=== PATIENT | female | born 1965 | race Caucasian/White ===

== ENCOUNTER 2017-01-10 21:40 | Emergency (ER) | payer MEDICAID ==
[2017-01-10 22:11] LABS: BASOPHILS 0.1 % (0.0-2.0); EOSINOPHILS 1.9 % (0-7); HEMATOCRIT 39.2 % (36.0-48.0); HEMOGLOBIN 13.1 g/dL (12-16); IMMATURE GRANULOCYTES 0.3 % (0-5); LYMPHOCYTES 40.6 % (15-50); MCHC 33.4 g/dL (31.0-37.0); MCV 95.6 fL (80.0-100.0); MONOCYTES 8.3 % (2-11); NEUTROPHILS 48.8 % (40-80); PLATELET COUNT 226 10x3/uL (130-400); RDW 12.8 % (11.5-14.5); WBC 7.3 10x3/uL (4.8-10.8)
[2017-01-10 22:35] LABS: APPEARANCE CLEAR (CLEAR); BILIRUBIN NEGATIVE (NEGATIVE); COLOR YELLOW (YELLOW); GLUCOSE NEGATIVE (NEGATIVE); KETONE NEGATIVE (NEGATIVE); LEUKOCYTE ESTERASE NEGATIVE (NEGATIVE); NITRITE NEGATIVE (NEGATIVE); PROTEIN NEGATIVE (NEGATIVE); UROBILINOGEN NORMAL (NORMAL)
[2017-01-10 22:36] LABS: BACTERIA NONE SEEN /hpf (NONE SEEN); EPITHELIAL CELLS 0-5 /hpf (0-5); RED CELLS - URINE 0-5 /hpf (0-5); WHITE CELLS - URINE NSEEN /hpf (0-5)
[2017-01-10 22:41] LABS: AMYLASE - SERUM 56 U/L (25-115); LIPASE 138 U/L (73-393)
== END 2017-01-10 23:07 | disposition home or self-care (01) ==
LOC: D.ER 21:40
PROVIDERS: Emergency Medicine
DX: E50.7 Other ocular manifestations of vitamin A deficiency (principal); K21.9 Gastro-esophageal reflux disease without esophagitis; F50.2 Bulimia nervosa; K27.9 Peptic ulcer, site unspecified, unspecified as acute or chronic, without hemorrhage or perforation; F41.0 Panic disorder [episodic paroxysmal anxiety]; F17.200 Nicotine dependence, unspecified, uncomplicated

== ENCOUNTER 2017-08-15 06:11 | Emergency (ER) | payer MEDICAID | END 2017-08-15 11:56 | disposition home or self-care (01) | LOC: D.ER 06:11 | DX: R06.00 Dyspnea, unspecified (principal); J44.1 Chronic obstructive pulmonary disease with (acute) exacerbation ==

== ENCOUNTER 2019-04-26 20:10 | Emergency (ER) | payer MEDICAID ==
[~2019-04-26] VITALS: Ht 160 cm; Wt 56.8 kg
[2019-04-26 20:17] VITALS: BP 129/74; Ht 160 cm; Wt 56.8 kg
[2019-04-26] MEDS ORDERED: ATIVAN0.5 MG PO (20:19)
== END 2019-04-26 22:24 | disposition left against medical advice (07) ==
LOC: D.ER 20:10
DX: M54.2 Cervicalgia (principal); M54.9 Dorsalgia, unspecified; R07.81 Pleurodynia; Y04.2XXA Assault by strike against or bumped into by another person, initial encounter; Y93.89 Activity, other specified; Y92.89 Other specified places as the place of occurrence of the external cause

== ENCOUNTER 2019-05-03 09:11 | Emergency (ER) | payer MEDICAID ==
[~2019-05-03 09:11] MED LIST: ATIVAN0.5 MG PO
[2019-05-03 09:15] VITALS: BMI 22.1
[2019-05-03 09:33] LABS: HEMATOCRIT 36.2 % (36.0-48.0); HEMOGLOBIN 12.5 g/dL (12-16); MCH 31.4 pg (26.0-34.0); MCHC 34.5 g/dL (31.0-37.0); MEAN PLATELET VOLUME 9.3 fL (7.4-10.4); PLATELET COUNT 193 10x3/uL (130-400); RBC 3.98 10x6/uL (4.00-5.40); RDW 12.5 % (11.5-14.5); WBC 3.7 10x3/uL (4.8-10.8)
[2019-05-03 09:46] LABS: ALKALINE PHOSPHATASE 49 U/L (46-116); ALT (SGPT) 25 U/L (10-68); BILIRUBIN - TOTAL 0.49 mg/dL (0.2-1.3); CALC OSMOLALITY 281 mosm/kg (275-300); CARBON DIOXIDE 25.6 mmol/L (21.0-32.0); CHLORIDE - SERUM 107 mmol/L (98-107); CREATININE - SERUM 0.6 mg/dL (0.6-1.3); GLUCOSE 96 mg/dL (74-106); POTASSIUM - SERUM 3.9 mmol/L (3.5-5.1); PROTEIN - SERUM 6.9 g/dL (6.4-8.2); SODIUM 141 mmol/L (136-145); UREA NITROGEN 14 mg/dL (7-18); eGFR NON AFRICAN AMERICAN > 90 mL/min (90-120)
[2019-05-03 09:47] LABS: APTT 31.8 SECONDS (22.8-39.4); INR 1.01 (0.85-1.17); PROTIME 12.8 SECONDS (11.6-15.0)
[2019-05-03 09:58] LABS: CKMB 0.2 U/L (0.0-3.6); CREATINE KINASE 32 UL (21-215); MAGNESIUM - SERUM 2.1 mg/dL (1.8-2.4)
[2019-05-03 10:00] LABS: TROPONIN-I < 0.017 ng/mL (0.000-0.060)
--- NOTE | 2019-05-03 10:03 | NUR ---
PT ASSESSED A LOW RISK. DR. BRUNNER AND ATTENDING PHYSICIAN NOTIFIED. RESOURCES GIVEN AND REVIEWED WITH PT. PT VERBALIZED UNDERSTANDING.
[2019-05-03 10:40] LABS: EOSINOPHILS 1 % (0-7); LYMPHOCYTES 57 % (15-50); MONOCYTES 8 % (2-11); NEUTROPHILS 34 % (40-80); PLATELET ESTIMATE NORMAL
[2019-05-03 15:59] VITALS: BP 84/53
== END 2019-05-03 16:00 | disposition home or self-care (01) ==
LOC: D.ER 09:11
PROVIDERS: Emergency Medicine
DX: R07.89 Other chest pain (principal)

== ENCOUNTER 2019-08-16 05:55 | Emergency (ER) | payer MEDICAID ==
[~2019-08-16] VITALS: Ht 160 cm; Wt 55.9 kg
[2019-08-16 05:59] VITALS: Ht 160 cm; Wt 55.9 kg
[2019-08-16] MEDS ORDERED: FLUTICASONE PRO16 GM NASAL (06:49)
[2019-08-16] MEDS ORDERED: CLEOCIN HCL300 MG PO (06:49)
[2019-08-16 07:12] VITALS: BP 126/80
== END 2019-08-16 07:13 | disposition home or self-care (01) ==
LOC: D.ER 05:55
DX: J01.90 Acute sinusitis, unspecified (principal); F17.200 Nicotine dependence, unspecified, uncomplicated

== ENCOUNTER 2019-09-04 08:49 | Emergency (ER) | payer SELFPAY ==
[~2019-09-04] VITALS: Ht 160 cm; Wt 56.8 kg
[~2019-09-04 08:49] MED LIST changes: +CLEOCIN HCL300 MG PO; +FLUTICASONE PRO16 GM NASAL
[2019-09-04 08:52] VITALS: Ht 160 cm; Wt 56.8 kg
[2019-09-04 09:20] LABS: BASOPHILS 0.2 % (0-2); EOSINOPHILS 6.4 % (0-7); HEMATOCRIT 41.2 % (36.0-48.0); LYMPHOCYTES 43.2 % (15-50); MCH 31.8 pg (26.0-34.0); MCV 93.6 fL (80.0-100.0); MEAN PLATELET VOLUME 9.8 fL (7.4-10.4); MONOCYTES 7.4 % (2-11); NEUTROPHILS 42.8 % (40-80); PLATELET COUNT 195 10x3/uL (130-400); RDW 12.7 % (11.5-14.5); WBC 4.8 10x3/uL (4.8-10.8)
[2019-09-04 09:24] LABS: APTT 31.7 SECONDS (22.8-39.4); INR 0.94 (0.85-1.17)
[2019-09-04 09:25] LABS: D-DIMER-QUANTITATIVE 0.32 ug/mLFEU (0.20-0.54)
[2019-09-04 09:28] LABS: ALBUMIN 4.4 g/dL (3.4-5.0); ALKALINE PHOSPHATASE 64 U/L (46-116); ALT (SGPT) 23 U/L (10-68); BILIRUBIN - TOTAL 0.43 mg/dL (0.2-1.3); CALC OSMOLALITY 277 mosm/kg (275-300); CARBON DIOXIDE 26.3 mmol/L (21.0-32.0); CHLORIDE - SERUM 104 mmol/L (98-107); CREATININE - SERUM 0.7 mg/dL (0.6-1.3); GLUCOSE 88 mg/dL (74-106); POTASSIUM - SERUM 3.7 mmol/L (3.5-5.1); PROTEIN - SERUM 7.8 g/dL (6.4-8.2); SODIUM 139 mmol/L (136-145); UREA NITROGEN 14 mg/dL (7-18); eGFR NON AFRICAN AMERICAN > 90 mL/min (90-120)
[2019-09-04 09:40] LABS: CKMB 0.4 U/L (0.0-3.6); CREATINE KINASE 37 UL (21-215); PRO BNP 141 pg/mL (0-125); TROPONIN-I < 0.017 ng/mL (0.000-0.060)
[2019-09-04 10:32] VITALS: BP 111/60
== END 2019-09-04 13:09 | disposition home or self-care (01) ==
LOC: D.ER 08:49
PROVIDERS: Family Medicine
DX: F41.0 Panic disorder [episodic paroxysmal anxiety] (principal)

== ENCOUNTER 2019-10-28 08:35 | Emergency (ER) | payer SELFPAY ==
[~2019-10-28] VITALS: Ht 160 cm; Wt 55.9 kg
[2019-10-28 08:41] VITALS: Ht 160 cm; Wt 55.9 kg
[2019-10-28] MEDS ORDERED: CLEOCIN HCL300 MG PO (09:05)
[2019-10-28 09:09] VITALS: BP 108/68
== END 2019-10-28 09:11 | disposition home or self-care (01) ==
LOC: D.ER 08:35
DX: J01.90 Acute sinusitis, unspecified (principal); Z72.0 Tobacco use

== ENCOUNTER 2019-11-18 15:10 | Emergency (ER) | payer SELFPAY ==
[~2019-11-18] VITALS: Ht 160 cm; Wt 57.7 kg
[2019-11-18 15:22] VITALS: Ht 160 cm; Wt 57.7 kg
[2019-11-18 15:48] LABS: APPEARANCE CLEAR (CLEAR); BILIRUBIN NEGATIVE (NEGATIVE); COLOR STRAW (YELLOW); GLUCOSE NEGATIVE (NEGATIVE); KETONE NEGATIVE (NEGATIVE); NITRITE NEGATIVE (NEGATIVE); PROTEIN NEGATIVE (NEGATIVE); SPECIFIC GRAVITY 1.005 (1.005-1.020); UROBILINOGEN NORMAL (NORMAL)
[2019-11-18 16:17] LABS: HEMATOCRIT 38.1 % (36.0-48.0); HEMOGLOBIN 12.9 g/dL (12-16); MCH 31.6 pg (26.0-34.0); MCHC 33.9 g/dL (31.0-37.0); MCV 93.4 fL (80.0-100.0); PLATELET COUNT 226 10x3/uL (130-400); RBC 4.08 10x6/uL (4.00-5.40); RDW 12.5 % (11.5-14.5); WBC 5.2 10x3/uL (4.8-10.8)
[2019-11-18 16:25] LABS: CALC OSMOLALITY 280 mosm/kg (275-300); CARBON DIOXIDE 29.3 mmol/L (21.0-32.0); CHLORIDE - SERUM 105 mmol/L (98-107); CREATININE - SERUM 0.7 mg/dL (0.6-1.3); GLUCOSE 91 mg/dL (74-106); POTASSIUM - SERUM 4.3 mmol/L (3.5-5.1); SODIUM 141 mmol/L (136-145); UREA NITROGEN 13 mg/dL (7-18); eGFR NON AFRICAN AMERICAN > 90 mL/min (90-120)
[2019-11-18 16:31] LABS: ALBUMIN 4.2 g/dL (3.4-5.0); ALKALINE PHOSPHATASE 73 U/L (46-116); ALT (SGPT) 55 U/L (10-68); BILIRUBIN - TOTAL 0.25 mg/dL (0.2-1.3); PROTEIN - SERUM 7.2 g/dL (6.4-8.2)
[2019-11-18 16:37] LABS: EOSINOPHILS 2 % (0-7); LYMPHOCYTES 51 % (15-50); MONOCYTES 9 % (2-11); NEUTROPHILS 38 % (40-80); PLATELET ESTIMATE NORMAL
[2019-11-18 18:53] VITALS: BP 110/70
== END 2019-11-18 18:53 | disposition home or self-care (01) ==
LOC: D.ER 15:10
PROVIDERS: Family Medicine
DX: G43.909 Migraine, unspecified, not intractable, without status migrainosus (principal); M79.7 Fibromyalgia

== ENCOUNTER 2019-11-26 20:57 | Emergency (ER) | payer MEDICAID ==
[~2019-11-26] VITALS: Ht 160 cm; Wt 59.1 kg
[2019-11-26 21:23] VITALS: BP 119/84; Ht 160 cm; Wt 59.1 kg
[2019-11-26 21:57] LABS: APPEARANCE CLEAR (CLEAR); BILIRUBIN NEGATIVE (NEGATIVE); COLOR YELLOW (YELLOW); GLUCOSE NEGATIVE (NEGATIVE); KETONE NEGATIVE (NEGATIVE); NITRITE NEGATIVE (NEGATIVE); PROTEIN NEGATIVE (NEGATIVE); UROBILINOGEN NORMAL (NORMAL)
[2019-11-26 22:21] LABS: CALC OSMOLALITY 281 mosm/kg (275-300); CALCIUM 8.9 mg/dL (8.5-10.1); CARBON DIOXIDE 27.7 mmol/L (21.0-32.0); CHLORIDE - SERUM 105 mmol/L (98-107); CREATININE - SERUM 0.7 mg/dL (0.6-1.3); GLUCOSE 99 mg/dL (74-106); POTASSIUM - SERUM 3.8 mmol/L (3.5-5.1); SODIUM 142 mmol/L (136-145); UREA NITROGEN 10 mg/dL (7-18); eGFR NON AFRICAN AMERICAN > 90 mL/min (90-120)
[2019-11-26 22:25] LABS: HEMOGLOBIN 13.4 g/dL (12-16); MCH 31.5 pg (26.0-34.0); MCHC 33.5 g/dL (31.0-37.0); MCV 94.1 fL (80.0-100.0); MEAN PLATELET VOLUME 9.3 fL (7.4-10.4); PLATELET COUNT 248 10x3/uL (130-400); RBC 4.25 10x6/uL (4.00-5.40); RDW 12.6 % (11.5-14.5); WBC 5.4 10x3/uL (4.8-10.8)
[2019-11-26 22:28] LABS: ALBUMIN 4.3 g/dL (3.4-5.0); ALKALINE PHOSPHATASE 65 U/L (46-116); ALT (SGPT) 27 U/L (10-68); BILIRUBIN - TOTAL 0.18 mg/dL (0.2-1.3); PROTEIN - SERUM 7.5 g/dL (6.4-8.2)
[2019-11-26 23:01] LABS: EOSINOPHILS 4 % (0-7); LYMPHOCYTES 49 % (15-50); MONOCYTES 4 % (2-11); NEUTROPHILS 43 % (40-80); PLATELET ESTIMATE NORMAL
== END 2019-11-26 22:38 | disposition left against medical advice (07) ==
LOC: D.ER 20:57
PROVIDERS: Family Medicine
DX: R05 Cough (principal)

== ENCOUNTER 2020-01-25 08:15 | Emergency (ER) | payer MEDICAID ==
[~2020-01-25] VITALS: Ht 160 cm; Wt 59.1 kg
[~2020-01-25 08:15] MED LIST changes: +BUSPAR5 MG PO
[2020-01-25 08:19] VITALS: Ht 160 cm; Wt 59.1 kg
[2020-01-25] MEDS ORDERED: DOXYCYCLINE HY100 M2 PO (08:34)
[2020-01-25 08:49] LABS: BASOPHILS 0.2 % (0-2); EOSINOPHILS 1.4 % (0-7); HEMATOCRIT 38.9 % (36.0-48.0); HEMOGLOBIN 13.1 g/dL (12-16); IMMATURE GRANULOCYTES 0.6 % (0-5); LYMPHOCYTES 48.5 % (15-50); MCH 31.2 pg (26.0-34.0); MCHC 33.7 g/dL (31.0-37.0); MCV 92.6 fL (80.0-100.0); MEAN PLATELET VOLUME 9.2 fL (7.4-10.4); MONOCYTES 7.6 % (2-11); NEUTROPHILS 41.7 % (40-80); PLATELET COUNT 251 10x3/uL (130-400); RDW 12.4 % (11.5-14.5)
[2020-01-25 09:37] LABS: BILIRUBIN NEGATIVE (NEGATIVE); GLUCOSE NEGATIVE (NEGATIVE); KETONE NEGATIVE (NEGATIVE); NITRITE NEGATIVE (NEGATIVE); SPECIFIC GRAVITY 1.005 (1.005-1.020); UROBILINOGEN NORMAL (NORMAL)
[2020-01-25 09:38] LABS: BACTERIA FEW /hpf (NEGATIVE); EPITHELIAL CELLS 0-5 /hpf (0-5); RED CELLS - URINE RARE /hpf (0-5); WHITE CELLS - URINE NSEEN /hpf (NEGATIVE)
[2020-01-25 09:53] LABS: CALC OSMOLALITY 285 mosm/kg (275-300); CARBON DIOXIDE 27.3 mmol/L (21.0-32.0); CHLORIDE - SERUM 106 mmol/L (98-107); CREATININE - SERUM 0.7 mg/dL (0.6-1.3); GLUCOSE 94 mg/dL (74-106); POTASSIUM - SERUM 3.9 mmol/L (3.5-5.1); SODIUM 143 mmol/L (136-145); UREA NITROGEN 14 mg/dL (7-18); eGFR NON AFRICAN AMERICAN > 90 mL/min (90-120)
[2020-01-25 09:54] VITALS: BP 113/62
[2020-01-25 09:59] LABS: ALBUMIN 3.9 g/dL (3.4-5.0); ALKALINE PHOSPHATASE 67 U/L (30-120); ALT (SGPT) 25 U/L (10-68); PROTEIN - SERUM 7.1 g/dL (6.4-8.2)
== END 2020-01-25 09:54 | disposition home or self-care (01) ==
LOC: D.ER 08:15
PROVIDERS: Emergency Medicine
DX: T48.295A Adverse effect of other drugs acting on muscles, initial encounter (principal); E04.9 Nontoxic goiter, unspecified

== ENCOUNTER 2020-06-03 22:08 | Emergency (ER) | payer MEDICAID ==
[~2020-06-03] VITALS: Ht 160 cm; Wt 63.5 kg
[~2020-06-03 22:08] MED LIST changes: +DOXYCYCLINE HY100 M2 PO
[2020-06-03 22:18] VITALS: Ht 160 cm; Wt 63.5 kg
[2020-06-03 23:49] LABS: HEMOGLOBIN 12.9 g/dL (12-16); LYMPHOCYTES 56.8 % (15-50); MCH 31.5 pg (26.0-34.0); MCHC 33.9 g/dL (31.0-37.0); MCV 92.7 fL (80.0-100.0); MEAN PLATELET VOLUME 9.1 fL (7.4-10.4); NEUTROPHILS 35.6 % (40-80); PLATELET COUNT 250 10x3/uL (130-400); RDW 12.6 % (11.5-14.5); WBC 5.7 10x3/uL (4.8-10.8)
[2020-06-04 00:03] LABS: CALC OSMOLALITY 282 mosm/kg (275-300); CARBON DIOXIDE 27.9 mmol/L (21.0-32.0); CHLORIDE - SERUM 107 mmol/L (98-107); CREATININE - SERUM 0.7 mg/dL (0.6-1.3); GLUCOSE 77 mg/dL (74-106); POTASSIUM - SERUM 3.6 mmol/L (3.5-5.1); SODIUM 142 mmol/L (136-145); UREA NITROGEN 14 mg/dL (7-18); eGFR NON AFRICAN AMERICAN > 90 mL/min (90-120)
[2020-06-04 00:09] LABS: HCG URINE NEGATIVE (NEGATIVE)
[2020-06-04 00:09] LABS: ALBUMIN 4.1 g/dL (3.4-5.0); ALKALINE PHOSPHATASE 74 U/L (30-120); ALT (SGPT) 22 U/L (10-68); BILIRUBIN - TOTAL 0.23 mg/dL (0.2-1.3); PROTEIN - SERUM 7.2 g/dL (6.4-8.2)
[2020-06-04 00:27] LABS: BILIRUBIN NEGATIVE (NEGATIVE); GLUCOSE NEGATIVE (NEGATIVE); KETONE NEGATIVE (NEGATIVE); NITRITE NEGATIVE (NEGATIVE); UROBILINOGEN NORMAL (NORMAL)
[2020-06-04 00:28] LABS: BACTERIA MODERATE /hpf (NEGATIVE); EPITHELIAL CELLS 0-5 /hpf (0-5); RED CELLS - URINE 0-5 /hpf (0-5); WHITE CELLS - URINE 0-5 /hpf (NEGATIVE)
[2020-06-04] MEDS ORDERED: MACROBID100 MG PO (00:39)
[2020-06-04 00:58] VITALS: BP 113/57
== END 2020-06-04 01:02 | disposition home or self-care (01) ==
LOC: D.ER 22:08
PROVIDERS: Family Medicine
DX: K59.00 Constipation, unspecified (principal); F50.2 Bulimia nervosa; N39.0 Urinary tract infection, site not specified

== ENCOUNTER 2020-06-27 10:31 | Emergency (ER) | payer MEDICAID ==
[~2020-06-27] VITALS: Ht 160 cm; Wt 61.4 kg
[~2020-06-27 10:31] MED LIST changes: +MACROBID100 MG PO
[2020-06-27 10:36] VITALS: Ht 160 cm; Wt 61.4 kg
[2020-06-27 11:39] LABS: BASOPHILS 0 % (0-2); EOSINOPHILS 1.6 % (0-7); HEMATOCRIT 38.1 % (36.0-48.0); IMMATURE GRANULOCYTES 0.2 % (0-5); LYMPHOCYTES 31.9 % (15-50); MCH 31.6 pg (26.0-34.0); MCHC 34.1 g/dL (31.0-37.0); MCV 92.7 fL (80.0-100.0); MEAN PLATELET VOLUME 9.4 fL (7.4-10.4); MONOCYTES 5.8 % (2-11); NEUTROPHILS 60.5 % (40-80); PLATELET COUNT 210 10x3/uL (130-400); RBC 4.11 10x6/uL (4.00-5.40); RDW 12.5 % (11.5-14.5); WBC 5.6 10x3/uL (4.8-10.8)
[2020-06-27 11:46] LABS: CALC OSMOLALITY 282 mosm/kg (275-300); CALCIUM 9.2 mg/dL (8.5-10.1); CARBON DIOXIDE 27.6 mmol/L (21.0-32.0); CHLORIDE - SERUM 108 mmol/L (98-107); CREATININE - SERUM 0.8 mg/dL (0.6-1.3); GLUCOSE 91 mg/dL (74-106); POTASSIUM - SERUM 3.9 mmol/L (3.5-5.1); SODIUM 142 mmol/L (136-145); UREA NITROGEN 12 mg/dL (7-18); eGFR NON AFRICAN AMERICAN 79 mL/min (90-120)
[2020-06-27 12:05] LABS: ALBUMIN 4.1 g/dL (3.4-5.0); ALKALINE PHOSPHATASE 64 U/L (30-120); ALT (SGPT) 21 U/L (10-68); BILIRUBIN - TOTAL 0.43 mg/dL (0.2-1.3); C-REACTIVE PROTEIN 0.6 mg/dL (0.0-0.9); FERRITIN 28 ng/mL (3-244); PROTEIN - SERUM 7.2 g/dL (6.4-8.2)
[2020-06-27] MEDS ORDERED: FLUTICASONE PRO16 GM NASAL (13:14)
[2020-06-27] MEDS ORDERED: CLEOCIN HCL300 MG PO (13:14)
[2020-06-27 13:27] VITALS: BP 122/78
== END 2020-06-27 13:27 | disposition home or self-care (01) ==
LOC: D.ER 10:31
PROVIDERS: Family Medicine
DX: J01.90 Acute sinusitis, unspecified (principal); R05 Cough; Z72.0 Tobacco use

== ENCOUNTER 2020-07-20 11:44 | Observation (INO) | payer MEDICAID ==
[~2020-07-20] VITALS: Ht 160 cm; Wt 63.6 kg
[2020-07-20 13:11] LABS: HEMOGLOBIN 12.3 g/dL (12-16); MCH 31.3 pg (26.0-34.0); MCHC 33.2 g/dL (31.0-37.0); MCV 94.1 fL (80.0-100.0); MEAN PLATELET VOLUME 9.4 fL (7.4-10.4); PLATELET COUNT 200 10x3/uL (130-400); RBC 3.93 10x6/uL (4.00-5.40); RDW 12.4 % (11.5-14.5); WBC 4.4 10x3/uL (4.8-10.8)
[2020-07-20 13:13] LABS: CALC OSMOLALITY 284 mosm/kg (275-300); CALCIUM 8.8 mg/dL (8.5-10.1); CARBON DIOXIDE 30.2 mmol/L (21.0-32.0); CHLORIDE - SERUM 107 mmol/L (98-107); CREATININE - SERUM 0.8 mg/dL (0.6-1.3); GLUCOSE 97 mg/dL (74-106); POTASSIUM - SERUM 3.9 mmol/L (3.5-5.1); SODIUM 143 mmol/L (136-145); UREA NITROGEN 13 mg/dL (7-18); eGFR NON AFRICAN AMERICAN 79 mL/min (90-120)
[2020-07-20 13:39] LABS: ALKALINE PHOSPHATASE 64 U/L (30-120); ALT (SGPT) 22 U/L (10-68); BILIRUBIN - TOTAL 0.27 mg/dL (0.2-1.3); CKMB 0.5 U/L (0.0-3.6); CREATINE KINASE 41 UL (21-215); MAGNESIUM - SERUM 1.9 mg/dL (1.8-2.4); PRO BNP 99 pg/mL (0-125)
[2020-07-20 13:43] LABS: TROPONIN-I < 0.017 ng/mL (0.000-0.060)
[2020-07-20 14:47] LABS: LYMPHOCYTES 43 % (15-50); MONOCYTES 3 % (2-11); NEUTROPHILS 54 % (40-80); PLATELET ESTIMATE NORMAL
--- NOTE | 2020-07-20 22:00 | NUR ---
ASSESSMENT AND EKG PERFORMED. EKD SCANNED AND IN CHART PER ORDER. SPOKE WITH PATIENT ABOUT NPO STATUS AND POSSIBLE HEART CATH TOMORROW AFTER CARDIOLOGY CONSULT. PATIENT VERBALIZES UNDERSTANDING. DENIES FURTHER NEEDS AT THIS TIME. CALL LIGHT REMAINS CLOSE. CPOC.
[2020-07-20 22:14] VITALS: BP 124/41; Ht 160 cm; Wt 63.6 kg
[2020-07-20 22:48] LABS: CKMB 0.2 U/L (0.0-3.6); CREATINE KINASE 41 UL (21-215)
[2020-07-20 22:49] LABS: TROPONIN-I < 0.017 ng/mL (0.000-0.060)
[2020-07-21 00:16] VITALS: BP 108/49
[2020-07-21 04:30] VITALS: BP 116/61
[2020-07-21 06:47] LABS: BASOPHILS 0.2 % (0-2); HEMATOCRIT 34.6 % (36.0-48.0); HEMOGLOBIN 11.3 g/dL (12-16); IMMATURE GRANULOCYTES 0.5 % (0-5); MCH 30.7 pg (26.0-34.0); MCHC 32.7 g/dL (31.0-37.0); MEAN PLATELET VOLUME 9.6 fL (7.4-10.4); MONOCYTES 6.2 % (2-11); NEUTROPHILS 32.1 % (40-80); PLATELET COUNT 188 10x3/uL (130-400); RBC 3.68 10x6/uL (4.00-5.40); RDW 12.4 % (11.5-14.5)
[2020-07-21 08:54] VITALS: BP 91/37
[2020-07-21 09:02] LABS: ALBUMIN 3.2 g/dL (3.4-5.0); ALKALINE PHOSPHATASE 49 U/L (30-120); ALT (SGPT) 20 U/L (10-68); BILIRUBIN - TOTAL 0.14 mg/dL (0.2-1.3); CALC OSMOLALITY 284 mosm/kg (275-300); CALCIUM 8.2 mg/dL (8.5-10.1); CARBON DIOXIDE 23.4 mmol/L (21.0-32.0); CHLORIDE - SERUM 112 mmol/L (98-107); CKMB 0.4 U/L (0.0-3.6); CREATINE KINASE 35 UL (21-215); CREATININE - SERUM 0.7 mg/dL (0.6-1.3); GLUCOSE 102 mg/dL (74-106); PROTEIN - SERUM 5.8 g/dL (6.4-8.2); SODIUM 143 mmol/L (136-145); UREA NITROGEN 13 mg/dL (7-18); eGFR NON AFRICAN AMERICAN > 90 mL/min (90-120)
[2020-07-21 09:03] LABS: TROPONIN-I < 0.017 ng/mL (0.000-0.060)
[2020-07-21 11:30] LABS: CKMB 0.4 U/L (0.0-3.6); CREATINE KINASE 39 UL (21-215)
[2020-07-21 11:39] LABS: TROPONIN-I 0.017 ng/mL (0.000-0.060)
[2020-07-21 13:05] VITALS: BP 115/63
--- NOTE | 2020-07-21 13:25 | NUR ---
PT WAS VERY AGIATED WHEN NURSE ANSWER CALLED LIGHT D/T HER WANTING TO EAT BUT SHE STILL REMAINS NPO UNTIL AFTER HER STRESS TEST. THIS NURSE HAS EXPLAINED TO PT IN DETAIL ABOUT WHAT IS GOING ON AND PT AT THAT TIME VOICES UNDERSTANDING. PT THEN GET BACK ON LIGHT AND STATED " I DONT KNOW WHATS GOING ON. NO ONE HAS TOLD ME ANYTHING AND I DONT UNDERSTANDING WHY I CANT EAT OR HAVE COFFEE." THIS NURSE INFORMED PT THAT THE CLINICAL STAFF ANESTHESIOLOGIST HAS BEEN PAGE TO ENSURE THAT TEST WILL BE TAKING PLACE ON TODAY. AND WAS INFORMED THAT IT WILL. AND THAT AFTER THE TEST PT MAY HAVE A DIET. PT WAS INFORMED AGAIN OF TIME OF STRESS TEST AND SHE WAS VERY SORRY FOR HER BEHAVIOR. C/L IN REACH AT BEDSIDE.
[2020-07-21 17:37] VITALS: BP 111/52
--- NOTE | 2020-07-21 21:12 | NUR ---
REMOVED PIV WITH TIP INTACT. PATIENT SIGNED D/C PAPERS, ALL QUESTIONS ANSWERED. TOOK PATIENT OUT THROUGH ER DOORS WHERE WAS WAITING.
== END 2020-07-21 21:12 | disposition home or self-care (01) ==
LOC: D.ER 11:44 → D.MS 17:30 → OBSVTIME 17:30 → D.MS 17:30
PROVIDERS: Family Medicine; ADMIT Family Medicine Adult Medicine; ATTEND Family Medicine Adult Medicine
DX: F41.9 Anxiety disorder, unspecified (principal); R07.9 Chest pain, unspecified; R06.02 Shortness of breath; K21.9 Gastro-esophageal reflux disease without esophagitis

== ENCOUNTER 2020-08-04 14:17 | Emergency (ER) | payer MEDICAID ==
[~2020-08-04] VITALS: Ht 160 cm; Wt 63.6 kg
[2020-08-04 14:22] VITALS: Ht 160 cm; Wt 63.6 kg
[2020-08-04 14:56] LABS: HEMATOCRIT 37.3 % (36.0-48.0); HEMOGLOBIN 12.4 g/dL (12-16); MCH 31.1 pg (26.0-34.0); MCHC 33.2 g/dL (31.0-37.0); MCV 93.5 fL (80.0-100.0); MEAN PLATELET VOLUME 9.4 fL (7.4-10.4); PLATELET COUNT 210 10x3/uL (130-400); RBC 3.99 10x6/uL (4.00-5.40); RDW 12.5 % (11.5-14.5); WBC 4.6 10x3/uL (4.8-10.8)
[2020-08-04 15:07] LABS: CALC OSMOLALITY 284 mosm/kg (275-300); CALCIUM 8.9 mg/dL (8.5-10.1); CARBON DIOXIDE 28.7 mmol/L (21.0-32.0); CHLORIDE - SERUM 104 mmol/L (98-107); CREATININE - SERUM 0.7 mg/dL (0.6-1.3); GLUCOSE 116 mg/dL (74-106); POTASSIUM - SERUM 3.6 mmol/L (3.5-5.1); SODIUM 142 mmol/L (136-145); UREA NITROGEN 14 mg/dL (7-18); eGFR NON AFRICAN AMERICAN > 90 mL/min (90-120)
[2020-08-04 15:13] LABS: ALBUMIN 4.1 g/dL (3.4-5.0); ALKALINE PHOSPHATASE 74 U/L (30-120); ALT (SGPT) 32 U/L (10-68); BILIRUBIN - TOTAL 0.45 mg/dL (0.2-1.3); PROTEIN - SERUM 7.2 g/dL (6.4-8.2)
[2020-08-04] MEDS ORDERED: CYCLOBENZAPRINE10 MG PO (16:10)
[2020-08-04] MEDS ORDERED: ACETAMINOPHEN500 M1 PO (16:10)
[2020-08-04] MEDS ORDERED: IBUPROFEN800 MG PO (16:10)
[2020-08-04 16:17] VITALS: BP 140/74
[2020-08-04 16:57] LABS: EOSINOPHILS 5 % (0-7); LYMPHOCYTES 52 % (15-50); NEUTROPHILS 43 % (40-80); PLATELET ESTIMATE NORMAL
== END 2020-08-04 16:17 | disposition home or self-care (01) ==
LOC: D.ER 14:17
PROVIDERS: Family Medicine
DX: M70.52 Other bursitis of knee, left knee (principal); M79.18 Myalgia, other site; K21.9 Gastro-esophageal reflux disease without esophagitis; M25.562 Pain in left knee

== ENCOUNTER 2021-04-02 11:45 | Emergency (ER) | payer BC ==
[~2021-04-02] VITALS: Ht 160 cm; Wt 70.5 kg
[~2021-04-02 11:45] MED LIST changes: +ACETAMINOPHEN500 M1 PO; +CYCLOBENZAPRINE10 MG PO; +IBUPROFEN800 MG PO; +PEPCID40 MG PO
[2021-04-02 11:49] VITALS: Ht 160 cm; Wt 70.5 kg
[2021-04-02 12:24] LABS: BASOPHILS 0.1 % (0-2); EOSINOPHILS 0.2 % (0-7); HEMATOCRIT 37.7 % (36.0-48.0); HEMOGLOBIN 12.2 g/dL (12-16); IMMATURE GRANULOCYTES 0.3 % (0-5); LYMPHOCYTE ABS# 3.99 10x3/uL (1.18-3.74); LYMPHOCYTES 44.4 % (15-50); MCH 30.7 pg (26.0-34.0); MCHC 32.4 g/dL (31.0-37.0); MEAN PLATELET VOLUME 9.9 fL (7.4-10.4); MONOCYTES 6.2 % (2-11); NEUTROPHIL ABS# 4.38 10x3/uL (1.56-6.13); NEUTROPHILS 48.8 % (40-80); PLATELET COUNT 236 10x3/uL (130-400); RBC 3.97 10x6/uL (4.00-5.40); RDW 13.4 % (11.5-14.5)
[2021-04-02 12:31] LABS: CALC OSMOLALITY 284 mosm/kg (275-300); CALCIUM 8.5 mg/dL (8.5-10.1); CHLORIDE - SERUM 106 mmol/L (98-107); CREATININE - SERUM 0.8 mg/dL (0.6-1.3); GLUCOSE 104 mg/dL (74-106); POTASSIUM - SERUM 3.1 mmol/L (3.5-5.1); SODIUM 142 mmol/L (136-145); UREA NITROGEN 17 mg/dL (7-18); eGFR NON AFRICAN AMERICAN 79 mL/min (90-120)
[2021-04-02 12:32] LABS: APTT 27.4 SECONDS (22.8-39.4); INR 1.01 (0.85-1.17); PROTIME 12.3 SECONDS (11.6-15.0)
[2021-04-02 12:48] LABS: ALBUMIN 3.8 g/dL (3.4-5.0); ALKALINE PHOSPHATASE 88 U/L (30-120); ALT (SGPT) 79 U/L (10-68); BILIRUBIN - TOTAL 0.21 mg/dL (0.2-1.3); CKMB 0.4 U/L (0.0-3.6); CREATINE KINASE 33 UL (21-215); MAGNESIUM - SERUM 2.1 mg/dL (1.8-2.4); PROTEIN - SERUM 7.1 g/dL (6.4-8.2); THYROID STIMULATING HORMONE 4.18 uIU/mL (0.36-3.74); TROPONIN-I < 0.017 ng/mL (0.000-0.060)
[2021-04-02 14:38] LABS: BILIRUBIN NEGATIVE (NEGATIVE); KETONE NEGATIVE (NEGATIVE); NITRITE NEGATIVE (NEGATIVE); UROBILINOGEN NORMAL mg/dL (< 2)
[2021-04-02 16:30] VITALS: BP 118/60
== END 2021-04-02 16:33 | disposition home or self-care (01) ==
LOC: D.ER 11:45
PROVIDERS: Emergency Medicine
DX: R53.81 Other malaise (principal); F41.9 Anxiety disorder, unspecified; E34.9 Endocrine disorder, unspecified; E87.6 Hypokalemia

== ENCOUNTER 2021-04-11 08:52 | Emergency (ER) | payer BC ==
[~2021-04-11] VITALS: Ht 160 cm; Wt 69.9 kg
[2021-04-11 08:58] VITALS: Ht 160 cm; Wt 69.9 kg
[2021-04-11 09:34] LABS: BASOPHILS 0 % (0-2); EOSINOPHILS 1.9 % (0-7); HEMATOCRIT 36.7 % (36.0-48.0); HEMOGLOBIN 12.3 g/dL (12-16); IMMATURE GRANULOCYTES 0.3 % (0-5); LYMPHOCYTE ABS# 1.73 10x3/uL (1.18-3.74); LYMPHOCYTES 47.3 % (15-50); MCHC 33.5 g/dL (31.0-37.0); MCV 92.4 fL (80.0-100.0); MEAN PLATELET VOLUME 9.3 fL (7.4-10.4); MONOCYTES 9.6 % (2-11); NEUTROPHILS 40.9 % (40-80); PLATELET COUNT 232 10x3/uL (130-400); RBC 3.97 10x6/uL (4.00-5.40); RDW 12.9 % (11.5-14.5); WBC 3.7 10x3/uL (4.8-10.8)
[2021-04-11 09:44] LABS: CALC OSMOLALITY 279 mosm/kg (275-300); CALCIUM 8.9 mg/dL (8.5-10.1); CARBON DIOXIDE 27.1 mmol/L (21.0-32.0); CHLORIDE - SERUM 107 mmol/L (98-107); CREATININE - SERUM 0.8 mg/dL (0.6-1.3); GLUCOSE 93 mg/dL (74-106); POTASSIUM - SERUM 4.2 mmol/L (3.5-5.1); SODIUM 141 mmol/L (136-145); UREA NITROGEN 11 mg/dL (7-18); eGFR NON AFRICAN AMERICAN 79 mL/min (90-120)
[2021-04-11 09:45] LABS: APTT 30.4 SECONDS (22.8-39.4); INR 0.99 (0.85-1.17); PROTIME 12.1 SECONDS (11.6-15.0)
[2021-04-11 10:01] LABS: ALBUMIN 3.7 g/dL (3.4-5.0); ALKALINE PHOSPHATASE 98 U/L (30-120); ALT (SGPT) 35 U/L (10-68); BILIRUBIN - TOTAL 0.29 mg/dL (0.2-1.3); CKMB 0.1 U/L (0.0-3.6); CREATINE KINASE 31 UL (21-215); MAGNESIUM - SERUM 2.2 mg/dL (1.8-2.4); PROTEIN - SERUM 6.9 g/dL (6.4-8.2); THYROID STIMULATING HORMONE 2.36 uIU/mL (0.36-3.74)
[2021-04-11 10:09] LABS: TROPONIN-I < 0.017 ng/mL (0.000-0.060)
[2021-04-11 10:10] LABS: ALCOHOL - BLOOD (MEDICAL) < 3.0 mg/dL (0.0-10.0)
[2021-04-11] MEDS ORDERED: AZITHROMYCIN500 MG PO (10:19)
[2021-04-11] MEDS ORDERED: IBUPROFEN800 MG PO (10:20)
[2021-04-11] MEDS ORDERED: ACETAMINOPHEN500 M1 PO (10:20)
[2021-04-11] MEDS ORDERED: CYCLOBENZAPRINE10 MG PO (10:20)
[2021-04-11 10:34] VITALS: BP 107/56
== END 2021-04-11 10:37 | disposition home or self-care (01) ==
LOC: D.ER 08:52
PROVIDERS: Family Medicine
DX: K05.10 Chronic gingivitis, plaque induced (principal); K08.89 Other specified disorders of teeth and supporting structures; R51.9 Headache, unspecified

== ENCOUNTER 2021-05-06 09:21 | Emergency (ER) | payer BC ==
[~2021-05-06] VITALS: Ht 160 cm; Wt 70.5 kg
[~2021-05-06 09:21] MED LIST changes: +AZITHROMYCIN500 MG PO
[2021-05-06 09:25] VITALS: BP 102/67; Ht 160 cm; Wt 70.5 kg
[2021-05-06 09:56] LABS: HEMATOCRIT 37.2 % (36.0-48.0); HEMOGLOBIN 12.4 g/dL (12-16); MCH 30.2 pg (26.0-34.0); MCHC 33.4 g/dL (31.0-37.0); MCV 90.6 fL (80.0-100.0); MEAN PLATELET VOLUME 7.1 fL (7.4-10.4); PLATELET COUNT 209 10x3/uL (130-400); RDW 13.3 % (11.5-14.5); WBC 2.8 10x3/uL (4.8-10.8)
[2021-05-06 10:07] LABS: CALC OSMOLALITY 276 mosm/kg (275-300); CALCIUM 8.6 mg/dL (8.5-10.1); CARBON DIOXIDE 23.8 mmol/L (21.0-32.0); CHLORIDE - SERUM 104 mmol/L (98-107); CREATININE - SERUM 0.8 mg/dL (0.6-1.3); GLUCOSE 101 mg/dL (74-106); POTASSIUM - SERUM 3.9 mmol/L (3.5-5.1); SODIUM 139 mmol/L (136-145); UREA NITROGEN 10 mg/dL (7-18); eGFR NON AFRICAN AMERICAN 79 mL/min (90-120)
[2021-05-06 10:15] LABS: ALBUMIN 4.1 g/dL (3.4-5.0); ALKALINE PHOSPHATASE 79 U/L (30-120); ALT (SGPT) 28 U/L (10-68); BILIRUBIN - TOTAL 0.29 mg/dL (0.2-1.3); CKMB 0.1 U/L (0.0-3.6); CREATINE KINASE 31 UL (21-215); MAGNESIUM - SERUM 1.9 mg/dL (1.8-2.4); PROTEIN - SERUM 7.3 g/dL (6.4-8.2)
[2021-05-06 10:16] LABS: TROPONIN-I < 0.017 ng/mL (0.000-0.060)
[2021-05-06 10:28] LABS: APTT 30.5 SECONDS (22.8-39.4); INR 1.05 (0.85-1.17); PROTIME 12.7 SECONDS (11.6-15.0)
[2021-05-06] MEDS ORDERED: VISTARIL50 MG PO (13:29)
[2021-05-06 14:02] LABS: LYMPHOCYTES 19 % (15-50); MONOCYTES 16 % (2-11); NEUTROPHILS 65 % (40-80); PLATELET ESTIMATE NORMAL
== END 2021-05-06 14:14 | disposition home or self-care (01) ==
LOC: D.ER 09:21
PROVIDERS: Family Medicine
DX: F41.9 Anxiety disorder, unspecified (principal); R07.9 Chest pain, unspecified; R68.84 Jaw pain